=== PATIENT | female | born 1990 | race African-American/Black ===

== ENCOUNTER 2018-08-13 10:10 | Emergency (ER) | payer SELFPAY ==
[2018-08-13] MEDS ORDERED: LIDOCAINE 1% INJ-PF (10 MG/ML) 30 ML SDV INJ ONE (11:15)
[2018-08-13] MEDS ORDERED: BUPIVACAINE HCL 0.5%-EPI 1:200000 INJ/PF 30 ML VIAL INJ ONE (11:15)
[2018-08-13] MEDS ORDERED: PENICILLIN V POTASSIUM 500 MG TABLET PO ONE (11:16)
--- NOTE | 2018-08-13 11:18 | ER Document Report ---
ED Oral Problem - General Chief Complaint: Toothache Stated Complaint: TOOTH PAIN Time Seen by Provider: 08/13/18 10:47 Primary Care Provider: [facility] [Provider Group] - Follow up as needed [facility] [Provider Group] - Follow up as needed Mode of Arrival: Ambulatory Information source: Patient Notes: 28-year-old female presents to ED for complaint of dental pain for tooth #18. She does have a open exposed nerve to the tooth. There is mild redness and erythema around the tooth. There is no obvious abscess at this time. She is alert oriented respirations regular and unlabored speaking in full sentences. She does have a history of high blood pressure but does not take any medications as she states she has no insurance blood pressure is 176/100. She also has Graves' disease and does not take her thyroid medicine and diabetes and does not take her metformin. He says she has not been to a doctor in a couple years due to not having any insurance. I have written a discharge referral for follow-up to see if they can help her to arrange medical care. TRAVEL OUTSIDE OF THE [place] IN LAST 30 DAYS: No - HPI Patient complains to provider of: Jaw pain, Toothache Onset: Other - month worse today Onset: Gradual Quality of pain: Sharp, Throbbing Severity: Severe Pain Level: 4 Associated symptoms: Toothache Worsened by: Cold Relieved by: Nothing Similar symptoms previously: Yes Recently seen / treated by doctor/dentist: No - Related Data Allergies/Adverse Reactions: No Known Allergies Allergy (Verified 08/13/18 10:12) Past Medical History - General Information source: Patient - Social History Smoking Status: Never Smoker Cigarette use (# per day): No Chew tobacco use (# tins/day): No Smoking Education Provided: No Frequency of alcohol use: Occasional Drug Abuse: None Occupation: Lives with: Other - family she is for Family History: Reviewed & Not Pertinent, DM Patient has suicidal ideation: No Patient has homicidal ideation: No - Past Medical History Cardiac Medical History: Reports: Hx Hypertension Pulmonary Medical History: Reports: Hx Asthma Neurological Medical History: Reports: Hx Migraine Endocrine Medical History: Reports: Hx Diabetes Mellitus Type 2, Hx Graves' Disease, Hx Hypothyroidism Renal/ Medical History: Reports: None Malignancy Medical History: Reports: None GI Medical History: Reports: None Musculoskeletal Medical History: Reports None Skin Medical History: Reports None Psychiatric Medical History: Reports: None Traumatic Medical History: Reports: None Infectious Medical History: Reports: None Past Surgical History: Reports: Hx Cholecystectomy - Immunizations Immunizations up to date: No Hx Diphtheria, Pertussis, Tetanus Vaccination: No Review of Systems - Review of Systems Constitutional: No symptoms reported EENT: Mouth pain, Dental problem Cardiovascular: No symptoms reported Respiratory: No symptoms reported Gastrointestinal: No symptoms reported Genitourinary: No symptoms reported Female Genitourinary: No symptoms reported Musculoskeletal: No symptoms reported Skin: No symptoms reported Hematologic/Lymphatic: No symptoms reported Neurological/Psychological: No symptoms reported -: Yes All other systems reviewed and negative Physical Exam - Vital signs Vitals: Temp Pulse Resp BP Pulse Ox 99.0 F 109 H 20 176/100 H 98 08/13/18 10:19 08/13/18 10:19 08/13/18 10:19 08/13/18 10:08/13/18 10:19 Interpretation: Normal, Hypertensive - General General appearance: Appears well, Alert - HEENT Head: Normocephalic, Atraumatic Eyes: Normal Pupils: PERRL Ears: Normal External canal: Normal Tympanic membrane: Normal Sinus: Normal Nasal: Normal Mouth/Lips: Caries Teeth diagram: 1 - Cavity to the back of the tooth with mild redness surrounding the tooth part of the tooth missing Pharynx: Normal Neck: Anterior cervical chain - Respiratory Respiratory status: No respiratory distress Chest status: Nontender Breath sounds: Normal Chest palpation: Normal - Cardiovascular Rhythm: Regular Heart sounds: Normal auscultation Murmur: No - Abdominal Inspection: Normal Distension: No distension Bowel sounds: Normal Tenderness: Nontender Organomegaly: No organomegaly - Back Back: Normal, Nontender - Extremities General upper extremity: Normal inspection, Nontender, Normal color, Normal ROM, Normal temperature General lower extremity: Normal inspection, Nontender, Normal color, Normal ROM, Normal temperature, Normal weight bearing. No: Jorge's sign - Neurological Neuro grossly intact: Yes Cognition: Normal Orientation: AAOx4 [place] Coma Scale Eye Opening: Spontaneous [place] Coma Scale Verbal: Oriented [place] Coma Scale Motor: Obeys Commands Krystin Coma Scale Total: 15 Speech: Normal Motor strength normal: LUE, RUE, LLE, RLE Sensory: Normal - Psychological Associated symptoms: Normal affect, Normal mood - Skin Skin Temperature: Warm Skin Moisture: Dry Skin Color: Normal Course - Re-evaluation Re-evalutation: 08/13/18 13:44 Patient was given an alveolar block for her dental pain for the tooth #17. She stated the pain was completely relieved after the dental block. She was given a prescription for penicillin VK as well as a penicillin VK in the emergency room and she was discharged home with instructions to please follow-up with a dentist. She was also given instructions to follow-up concerning her blood pressure diabetes and Graves' disease. I also did a discharge planning referral as she does have multiple medical problems that do need continuous care. - Vital Signs Vital signs: Temp Pulse Resp BP Pulse Ox 98.6 F 89 16 159/92 H 100 08/13/18 12:17 08/13/18 12:17 08/13/18 12:17 08/13/18 12:17 08/13/18 12:17 Discharge - Discharge Clinical Impression: Pain due to dental caries Condition: Stable Disposition: HOME, SELF-CARE Instructions: Family Physicians / Practices Additional Instructions: TOOTHACHE: Your pain is due to dental decay. The tooth must be repaired in order for you to feel better. You will, therefore, be referred to a dentist. We do not have dentists on the staff at [facility]. Severe swelling or drainage around a tooth usually means a dental abscess. This also requires evaluation and treatment by the dentist, but antibiotics may be prescribed while awaiting dental treatment. You should be rechecked immediately if you develop major swelling of the face, increasing pain, a lump in the jaw or gums, headache, difficulty swallowing, or fever. PENICILLIN V K: You have been given a prescription for Penicillin VK. Your physician has determined that this is the best antibiotic for your condition. Pen VK can be taken with meals, however more of the antibiotic gets into the bloodstream if it's taken on an empty stomach. Penicillin usually has no side effects. However, allergy to penicillins is common. If you have had an allergic reaction to any drug of the penicillin family, you should never take any other penicillin. Notify your doctor at once if you develop hives, itching, swelling, faintness, or shortness of breath. You have had a dental block with Sensorcaine and lidocaine to your dental pain in your left lower molar. You have stated you have complete relief at this time with your pain. This relief will last between 6-8 hours. It is very advisable that you call a dentist as soon as possible to get this tooth treated because no treatment that I gave you in the emergency room is going to last forever you need the tooth treated. Please also go to the drugstore and get some of the dental paste that you fill the tooth and with to prevent the air from touching this tooth until you can follow-up with a dentist. FOLLOW-UP CARE: You have been referred for follow-up care to the dentists listed below. Call the dentists office for an appointment as you were instructed or within the next two days. If you experience worsening or a significant change in your symptoms, notify the physician immediately or return to the Emergency Department at any time for re-evaluation. [facility] [address] [place], [place] [facility] [address] [place] [address] [facility] [place] [address] [facility] [address] [facility] [address] [email or web address] [address] [place] [address] Monday- 8:00am to 5:00 pm Will see patients from other peoples hospital. Charges based on income and family size and accepts Medicare, Medicaid, and Insurances Will pull molars [facility] [id number] Hours of Operation 8:00 am - 4:30 pm weekdays The following dental offices accept Medicaid: [facility] Dr. [address] Dr. [place] [address]. [place] Dr. Chavez Mariusz Nagy, Danial, and Suzette oral surgery Dr. Davis ([place]) Dr. Mejia ([place]) [facility] Drs. Chong ([place]) Dr. Jarvis ([place]) [facility] Dr. Gutiérrez ([place]) Drs. Marin and ([place]) Medicaid Care Line Prescriptions: Penicillin V Potassium [Penicillin Vk 500 mg Tablet] 500 mg PO BID #20 tablet Forms: Elevated Blood Pressure Referrals: [facility] [Provider Group] - Follow up as needed [facility] [Provider Group] - Follow up as needed
[2018-08-13 12:19] VITALS: BP 159/92
== END 2018-08-13 12:19 | disposition home or self-care (01) ==
LOC: ER 10:10
DX: K02.9 Dental caries, unspecified (principal); K08.89 Other specified disorders of teeth and supporting structures
CPT/HCPCS: 99282; 64400; J3490 ×2

== ENCOUNTER 2019-02-02 06:27 | Emergency (ER) | payer SELFPAY ==
--- NOTE | 2019-02-02 08:18 | ER Document Report ---
Addendum entered and electronically signed by CLARENCE HERNANDEZ PA-C 02/02/19 10:04: Discharge - Discharge Clinical Impression: Pain, dental High blood pressure Qualifiers: Hypertension type: unspecified Qualified Code(s): I10 - Essential (primary) hypertension Condition: Good Disposition: HOME, SELF-CARE Instructions: Toothache ([facility]) Additional Instructions: Follow-up with PCP/dentist 1 to 2 days. Return for any worsening symptoms. tylenol for any pain. f/u with pcp in 1-2 days for a recheck of your blood pressure as it was elevated here today and you may need to be placed on bp meds. Prescriptions: Lidocaine HCl [Xylocaine 2% Viscous Soln 20 ml Udcup] 5 ml PO QID PRN #100 ml PRN Reason: For Breakthrough Pain Penicillin V Potassium [Penicillin Vk 500 mg Tablet] 500 mg PO QID 10 Days #40 tablet Referrals: EVAN PATTERSON MD [HONORARY] - Follow up as needed Addendum entered and electronically signed by CLARENCE HERNANDEZ PA-C 02/02/19 10:01: Provider Note Provider Note: pt had some return of her dental pain after getting the dental block i was informed of at dc and was requesting pain control, so pt was ordered one norco here for her pain with improvement of her sx. will also dc with lidocaine viscous swish and spit. Original Note: HPI - HPI Patient complains to provider of: dental pain Time Seen by Provider: 02/02/19 08:08 Onset/Duration: Gradual, Constant Quality of pain: Sharp Severity: Moderate Pain Level: 4 Context: This is a 28-year-old female pt with the listed pmh presenting with toothache. Patient states this has been ongoing for about 2 days. endorses hx of breaking this tooth accidentally a while back. Patient describes the pain in the mouth as a 8 out of 10, sharp, aching, is located in the left lower posterior of the mouth. Patient denies any difficulty swallowing. Patient denies any difficulty handling secretions. Patient states normal appetite and fluid intake. Patient denies any fever or chills. Patient denies any radiation of pain into the neck. Patient states that chewing, and hot and cold make the pain worse. Palpation makes pain worse and rest makes it better. Patient denies any difficulty breathing. Patient denies all complaints at this time. Patient is here for pain control. no recent abx or steroids. hx of diabetes but states her sugars have been running well. States she went to the dentist however her blood pressure was elevated and they would not pull the tooth secondary to this. This was back in July. She has no PCP secondary to no insurance and has not bothered to follow-up to get her blood pressure controlled to be able to take care of her tooth issue. no recent illness. denies . Associated Symptoms: denies: Drooling, Earache, Fever, Headache, Vomiting Exacerbated by: Food Relieved by: Remaining still Similar symptoms previously: Yes Recently seen / treated by doctor: Yes - REPRODUCTIVE Reproductive: DENIES: : Past Medical History - General Information source: Patient - Social History Smoking Status: Former Smoker Frequency of alcohol use: None Drug Abuse: None Family History: Reviewed & Not Pertinent, DM Patient has suicidal ideation: No Patient has homicidal ideation: No - Past Medical History Cardiac Medical History: Reports: Hx Hypertension Pulmonary Medical History: Reports: Hx Asthma Neurological Medical History: Reports: Hx Migraine Endocrine Medical History: Reports: Hx Diabetes Mellitus Type 2, Hx Graves' Disease, Hx Hypothyroidism Renal/ Medical History: Denies: Hx Peritoneal Dialysis Past Surgical History: Reports: Hx Cholecystectomy - Immunizations Immunizations up to date: No Hx Diphtheria, Pertussis, Tetanus Vaccination: No Vertical Provider Document - CONSTITUTIONAL Notes: GENERAL_APPEARANCE: well_nourished, alert, cooperative, no_acute_distress, mild_obvious_discomfort. pleasant, obese young black female, speaking in full sentences, nontoxic, in no sign of pain or resp distress, easily sitting up, no one is with her. VITALS:reviewed, see vital signs table. HEAD: normocephalic, atraumatic. no swelling or ttp EARS: normal TMs and canals bilat. no sign of mastoiditis. no drainage or bleeding. EYES: PERRL, EOMI, conjunctiva_clear. NOSE: no_nasal_discharge. MOUTH: no decreased moisture. there are multiple dental caries noted. Tooth # 18 is broken and is extremely carious. There is mild localized inflammation. There is mild buccal swelling. there is tenderness to palpation over the noted tooth of concern. Uvula is midline. There is no trismus. There is no TMJ ttp/clicking produced. no tenderness over the sternocleidomastoid muscles. There is no tenderness over the thyroid cartilage. There is no submandibular hardness. no sign of ludwigs or drainable dental abscess. THROAT: no_tonsilar_inflammation/exudate/hypertrophy, no_airway_obstruction. no ulcers/lesions/thrush. no tongue/lip/facial swelling. no drooling, tripoding, voice change or stridor NECK: supple, no_neck_tenderness, no lymphadenopathy. full rom and full strength. no meningeal signs. LUNGS: no_wheezing, ctab, (-)accessory muscle use, good air exchange bilateral. HEART: normal_rate, normal_rhythm, no_murmur, EXTREMITIES: strength 5/5 in all extremities, good pulses in all extremities, no swelling\tenderness in the extremities, no edema. full rom. normal gait. brisk cap refill. good hand cco. NEURO: motor and sensation intact to light touch, cranial nerves 2-12 intact, cerebellar fxn intact SKIN: warm, dry, good_color, no_rash. no grossly visible overlying skin changes or signs of trauma. MENTAL_STATUS: speech_clear, oriented_X_3 , normal_affect, responds_appropriately to questions. - INFECTION CONTROL TRAVEL OUTSIDE OF THE [place] IN LAST 30 DAYS: No Course - Re-evaluation Re-evalutation: 02/02/19 09:28 Pt here for dental pain. She has not followed up with a dentist secondary to financial reasons along with a PCP. i did give her a dental and PCP list. She had improvement of her pain here with a dental block as described in the note. will discharge her with penicillin VK. Tylenol for any pain. Her blood pressure was a little elevated here today. She denies any hypertension symptoms. Advised she needs to follow-up with a PCP for blood pressure recheck as she may need to be placed on bp medications. advised to f/u with pcp/dentist in 1-2 days. return for any worsening symptoms. vss. well appearing. satting well on ra. neurononfocal. pt understands and agrees to plan. take the medication as prescribed. On reexam, pt improved with tx listed. remained stable. nontoxic. well appearin g. pain controlled. tolerating po. requesting to go home. Documentation achieved through voice recording which my lead to some occasional accidental typographical errors. Extensive efforts have been made to proof read documentation to make sure these are the least as possible. 02/02/19 09:31 Category Date Time Status Bupivacaine HCl/Pf [Sensorcaine 0.5% Mpf Inj 30 ml Sdv] Med 02/02/19 08:36 Once 30 ml INJ NOW ONE Lidocaine HCl [Xylocaine 1% Inj (10 mg/1 ml) 10 ml Mdv] Med 02/02/19 08:36 Once 10 ml INJ NOW ONE Lidocaine HCl/Pf [Xylocaine 1% Inj-Pf (10 mg/ml) 30 ml Med 02/02/19 08:38 Discontinued Sdv] 30 ml .ROUTE .STK-MED ONE Penicillin V Potassium [Penicillin Vk 500 mg Tablet] Med 02/02/19 09:31 Once 500 mg PO NOW ONE 02/02/19 09:32 DENTAL BLOCK PROCEDURE: The benefits, risks and possible complications of the procedure were explained to the pt who clearly understood and gave verbal consent without reservation. Left inferior alveolar was anesthetized with 2mL of lidocaine 1% without epi and bupivacaine 0.5% without epi via a 27 gauge needle. Satisfactory anesthesia was achieved. Pt tolerated procedure well. No complications. - Vital Signs Vital signs: Temp Pulse Resp BP Pulse Ox 98 F 88 14 165/109 H 97 02/02/19 06:28 02/02/19 06:28 02/02/19 06:28 02/02/19 06:28 02/02/19 06:28 Discharge - Discharge Clinical Impression: Pain, dental, High blood pressure Condition: Good Disposition: HOME, SELF-CARE Instructions: Toothache ([facility]) Additional Instructions: Follow-up with PCP/dentist 1 to 2 days. Return for any worsening symptoms. tylenol for any pain. f/u with pcp in 1-2 days for a recheck of your blood pressure as it was elevated here today and you may need to be placed on bp meds. Prescriptions: Penicillin V Potassium [Penicillin Vk 500 mg Tablet] 500 mg PO QID 10 Days #40 tablet Referrals: EVAN PATTERSON MD [HONORARY] - Follow up as needed
[2019-02-02] MEDS ORDERED: BUPIVACAINE HCL 0.5 % INJ/PF 30 ML SDV INJ ONE (08:36)
[2019-02-02] MEDS ORDERED: LIDOCAINE 1% INJ (10 MG/ML) 10 ML MDV INJ ONE (08:36)
[2019-02-02] MEDS ORDERED: LIDOCAINE 1% INJ-PF (10 MG/ML) 30 ML SDV ONE (08:38)
[2019-02-02] MEDS ORDERED: PENICILLIN V POTASSIUM 500 MG TABLET PO ONE (09:31)
[2019-02-02] MEDS ORDERED: HYDROCODONE/ACETAMINOPHEN 5-325 MG TABLET PO ONE (10:00)
[2019-02-02 10:07] VITALS: BP 188/111
== END 2019-02-02 10:07 | disposition home or self-care (01) ==
LOC: ER 06:27
DX: K08.9 Disorder of teeth and supporting structures, unspecified (principal); I10 Essential (primary) hypertension; E11.9 Type 2 diabetes mellitus without complications; Z90.49 Acquired absence of other specified parts of digestive tract
CPT/HCPCS: 99282; 64400; J3490

== ENCOUNTER 2019-02-02 23:37 | Inpatient (IN) | payer SELFPAY ==
[2019-02-03] MEDS ORDERED: NORMAL SALINE 1000 ML 1,000 ML IV ONE (00:35)
[2019-02-03] MEDS ORDERED: MORPHINE SULFATE 10 MG/ML INJ IV ONE (00:56)
[2019-02-03] MEDS ORDERED: ONDANSETRON HCL INJ/PF 4 MG/2 ML SDV IV ONE (00:56)
[2019-02-03] MEDS ORDERED: CLINDAMYCIN 900 MG/D5W RTU 900 MG/50 ML RTUPB IV SCH ×2 (01:00→06:00)
--- NOTE | 2019-02-03 01:00 | ER Document Report ---
ED General - General Chief Complaint: Facial Swelling Stated Complaint: FACIAL SWELLING Time Seen by Provider: 02/03/19 00:28 Mode of Arrival: Ambulatory Information source: Patient Notes: 28-year-old female with Graves' disease presents with left-sided facial swelling that started this afternoon. Patient was seen in the emergency department earlier today and diagnosed with a dental abscess. She underwent a dental block and was started on antibiotics. She states that she has taken 2 doses of antibiotics today. She had no facial swelling until she awoke from sleep this afternoon. Patient also having pain with opening her mouth. She denies any difficulty swallowing, fever, chills. She does admit to one episode of nausea and vomiting after taking her antibiotics. Patient's initial tooth pain started 2 days prior to this visit. She states she fractured her tooth several months ago but has not been able to see a dentist due to financial reasons. TRAVEL OUTSIDE OF THE [place] IN LAST 30 DAYS: No - HPI Onset: Other Onset/Duration: Gradual, Persistent, Worse Quality of pain: Throbbing Severity: Moderate Pain Level: 2 Associated symptoms: Headache, Nausea, Vomiting. denies: Hoarseness, Hurts to breath, Shortness of breath, Sore throat Exacerbated by: Movement Relieved by: Remaining still Similar symptoms previously: No Recently seen / treated by doctor: Yes - Related Data Allergies/Adverse Reactions: No Known Allergies Allergy (Verified 02/02/19 23:47) Past Medical History - General Information source: Patient - Social History Smoking Status: Never Smoker Frequency of alcohol use: None Drug Abuse: None Lives with: Family Family History: Reviewed & Not Pertinent, DM Patient has suicidal ideation: No Patient has homicidal ideation: No - Past Medical History Cardiac Medical History: Reports: Hx Hypertension Pulmonary Medical History: Reports: Hx Asthma Neurological Medical History: Reports: Hx Migraine Endocrine Medical History: Reports: Hx Diabetes Mellitus Type 2, Hx Graves' Disease, Hx Hypothyroidism Renal/ Medical History: Denies: Hx Peritoneal Dialysis Past Surgical History: Reports: Hx Cholecystectomy - Immunizations Immunizations up to date: No Hx Diphtheria, Pertussis, Tetanus Vaccination: No Review of Systems - Review of Systems Notes: REVIEW OF SYSTEMS: CONSTITUTIONAL : Denies fever, chills, or sweats. Denies recent illness. Denies weight loss, recent hospitalizations. EENT: Denies visual changes, eye pain. Denies sore throat, oral lesions, difficulty swallowing. CARDIOVASCULAR: Denies chest pain. Denies palpitations. Denies lower extremity edema. RESPIRATORY: Denies cough. Denies shortness of breath, wheezing. GASTROINTESTINAL: Denies abdominal pain or distention. Denies diarrhea. Denies blood in vomitus, stools, or per rectum. Denies black, tarry stools. Denies constipation. GENITOURINARY: Denies difficulty urinating, painful urination, frequency, blood in urine, or vaginal discharge. MUSCULOSKELETAL: Denies back or neck pain or stiffness. Denies joint pain or swelling. SKIN: Denies rash, lesions or sores. HEMATOLOGIC : Denies easy bruising or bleeding. LYMPHATIC: Denies swollen glands. NEUROLOGICAL: Denies confusion or altered mental status. Denies loss of consciousness. Denies dizziness or lightheadedness. Denies headache. Denies weakness or paralysis. Denies problems difficulty with ambulation, slurred speech. Denies sensory loss, numbness, or tingling. Denies seizures. PSYCHIATRIC: Denies anxiety or stress. Denies depression, suicidal ideation, or homicidal ideation. Denies visual or auditory hallucinations. Physical Exam - Vital signs Vitals: Temp Pulse Resp BP Pulse Ox 99.5 F 109 H 20 176/105 H 97 02/03/19 00:08 02/03/19 00:08 02/03/19 00:08 02/03/19 00:08 02/03/19 00:08 - Notes Notes: PHYSICAL EXAMINATION: GENERAL: Well-appearing, well-nourished and in no acute distress. HEAD: Atraumatic, normocephalic. EYES: Pupils equal round and reactive to light, extraocular movements intact, conjunctiva are normal. ENT: Nares patent, oropharynx clear without exudates. Moist mucous membranes. Left sided mandibular swelling. Fluctuance, no erythema. No dental abscess appreciated. No sublingual edema. NECK: Normal range of motion, supple without lymphadenopathy LUNGS: Breath sounds clear to auscultation bilaterally and equal. No wheezes rales or rhonchi. HEART: Regular rate and rhythm without murmurs ABDOMEN: Soft, nontender, nondistended abdomen. No guarding, no rebound. No masses appreciated. Female : deferred Musculoskeletal: Normal range of motion, no pitting or edema. No cyanosis. NEUROLOGICAL: Cranial nerves grossly intact. Normal speech, normal gait. Normal sensory, motor exams PSYCH: Normal mood, normal affect. SKIN: Warm, Dry, normal turgor, no rashes or lesions noted. Course - Re-evaluation Re-evalutation: Laboratory 02/03/19 02/03/19 01:25 01:25 WBC 13.6 H RBC 4.24 Hgb 11.6 L Hct 34.8 L MCV 82 MCH 27.2 MCHC 33.2 RDW 16.4 H Plt Count 301 Seg Neutrophils % 69.8 Lymphocytes % 23.1 Monocytes % 6.4 Eosinophils % 0.2 Basophils % 0.5 Absolute Neutrophils 9.5 H Absolute Lymphocytes 3.1 Absolute Monocytes 0.9 Absolute Eosinophils 0.0 Absolute Basophils 0.1 Sodium 138.4 Potassium 3.8 Chloride 103 Carbon Dioxide 25 Anion Gap 10 BUN 10 Creatinine 0.85 Est GFR ( Amer) > 60 Est GFR (Non-Af Amer) > 60 Glucose 128 H Calcium 9.[address] 02/03/19 00:28 IMPRESSION: Left facial cellulitis with no discrete abscess TECHNICAL DOCUMENTATION: Quality ID # 436: Final reports with documentation of one or more dose reduction techniques (e.g., Automated exposure control, adjustment of the mA and/or kV according to patient size, use of iterative reconstruction technique) copyright 2011 [employer]- All Rights Reserved Temp Pulse Resp BP Pulse Ox 99.5 F 109 H 20 176/105 H 97 02/03/19 00:08 02/03/19 00:08 02/03/19 00:08 02/03/19 00:08 02/03/19 00:08 02/03/19 00:59 28-year-old female presents for the second time today with the dental pain and now facial swelling which was not present this morning. Vital signs reviewed and patient is afebrile but tachycardic and markedly hypertensive. She states that she was started on the blood pressure medication today for the first time and did take it. She also states that she did take 2 doses of her penicillin today but when she awoke from her nap had significant facial swelling that was not present on her exam this morning.. Patient is currently afebrile, normotensive. She does not appear toxic or dehydrated. She is in no acute distress. CT of the face with IV contrast will be obtained to assess for abscess. She has been given IV clindamycin, morphine and Zofran, metoprolol. 02/03/19 03:22 CT of the face was obtained and showed facial cellulitis without a discrete abscess. In the few hours the patient has been in the emergency department her swelling has significantly worsened. She is able to still open her mouth although it is very painful. Discussed admission versus a trial of outpatient antibiotics and patient is very concerned about going home. Patient will be admitted to Dr. Orozco. 02/03/19 04:45 02/03/19 04:47 - Vital Signs Vital signs: Temp Pulse Resp BP Pulse Ox 99.5 F 109 H 20 170/96 H 96 02/03/19 00:08 02/03/19 00:08 02/03/19 00:08 02/03/19 04:01 02/03/19 04:02 - Laboratory Result Diagrams: 02/03/19 01:25 02/03/19 01:25 Laboratory results interpreted by me: 02/03/19 02/03/19 01:25 01:25 WBC 13.6 H Hgb 11.6 L Hct 34.8 L RDW 16.4 H Absolute Neutrophils 9.5 H Glucose 128 H - Diagnostic Test Radiology reviewed: Image reviewed, Reports reviewed Discharge - Discharge Clinical Impression: Facial cellulitis, Facial swelling, Trismus, Pain, dental High blood pressure Qualifiers: Hypertension type: essential hypertension Qualified Code(s): I10 - Essential (primary) hypertension Condition: Good Disposition: ADMITTED INPATIENT Admitting Provider: Ernesto (Hospitalist) Unit Admitted: Medical Floor
[2019-02-03 01:40] LABS: ABSOLUTE BASOPHILS # (AUTO) 0.1 10^3/uL (0.0-0.2); ABSOLUTE LYMPHOCYTES (AUTO) 3.1 10^3/uL (0.5-4.7); ABSOLUTE MONOCYTES (AUTO) 0.9 10^3/uL (0.1-1.4); ABSOLUTE NEUT (AUTO) 9.5 10^3/uL (1.7-8.2); BASOPHILS % (AUTO) 0.5 % (0-2); EOSINOPHILS % (AUTO) 0.2 % (0-6); HEMATOCRIT 34.8 % (36.0-47.0); HEMOGLOBIN 11.6 g/dL (12.0-15.5); LYMPHOCYTES % (AUTO) 23.1 % (13-45); MEAN CORPUSCULAR HEMOGLOBIN 27.2 pg (27.0-33.4); MEAN CORPUSCULAR HGB CONC 33.2 g/dL (32.0-36.0); MEAN CORPUSCULAR VOLUME 82 fl (80-97); MONOCYTES % (AUTO) 6.4 % (3-13); PLATELET COUNT 301 10^3/uL (150-450); RED BLOOD COUNT 4.24 10^6/uL (3.72-5.28); RED CELL DISTRIBUTION WIDTH 16.4 % (11.5-14.0); SEGMENTED NEUTROPHILS % (AUTO) 69.8 % (42-78); TOTAL CELLS COUNTED % (AUTO) 100 %; WHITE BLOOD COUNT 13.6 10^3/uL (4.0-10.5)
[2019-02-03 01:56] LABS: ANION GAP 10 (5-19); BLOOD UREA NITROGEN 10 mg/dL (7-20); CALCIUM 9.2 mg/dL (8.4-10.2); CARBON DIOXIDE 25 mmol/L (22-30); CHLORIDE 103 mmol/L (98-107); GLUCOSE 128 mg/dL (75-110); POTASSIUM 3.8 mmol/L (3.6-5.0)
[2019-02-03] MEDS ORDERED: CLINDAMYCIN 900 MG/D5W RTU 900 MG/50 ML RTUPB IV ONE (02:22)
--- NOTE | 2019-02-03 02:58 | RADIOLOGY REPORT (SQ) ---
EXAM DESCRIPTION: CT MAXILLOFACIAL WITH IV CONTRAST COMPLETED DATE/TME: 02/03/2019 00:28 CLINICAL HISTORY: 28 years, Female, swelling COMPARISON: None. TECHNIQUE: 292 Images stored on PACS. All CT scanners at this facility use dose modulation, iterative reconstruction, and/or weight based dosing when appropriate to reduce radiation dose to as low as reasonably achievable (ALARA). [facility]: Dose Right [facility]: CareDose [facility]: Dose Right [facility]: Teradose 4D [facility]: [employer] LIMITATIONS: None. FINDINGS: Soft tissue swelling along the left face and superficial to the left mandible. No well-defined fluid collection or abscess. No bony destructive process. Minor mucosal thickening right maxillary sinus. Paranasal sinuses are otherwise well aerated. Globes are intact. IMPRESSION: Left facial cellulitis with no discrete abscess TECHNICAL DOCUMENTATION: Quality ID # 436: Final reports with documentation of one or more dose reduction techniques (e.g., Automated exposure control, adjustment of the mA and/or kV according to patient size, use of iterative reconstruction technique) copyright 2010 [employer]- All Rights Reserved
[2019-02-03] MEDS ORDERED: METOPROLOL TARTRATE 50 MG TABLET PO ONE (03:14)
[2019-02-03] MEDS ORDERED: MAGNESIUM HYDROXIDE SUSP 30 ML UDCUP PO PRN (03:40)
[2019-02-03] MEDS ORDERED: MAG HYDROX/AL HYDROX/SIMETH SUSP 30 ML UDCUP PO PRN (03:40)
[2019-02-03] MEDS ORDERED: NICOTINE 21 MG/24 HR PATCH.TD24 TD PRN (03:45)
[2019-02-03] MEDS ORDERED: NALBUPHINE HCL INJ 10 MG/1 ML AMPULE IV PRN (03:45)
[2019-02-03] MEDS ORDERED: LEVALBUTEROL HCL NEB 0.63 MG/3 ML AMPUL NEB PRN (03:55)
[2019-02-03] MEDS ORDERED: ALPRAZOLAM 0.25 MG TABLET PO PRN (03:55)
[2019-02-03] MEDS ORDERED: PENICILLIN G-K 5 MILLION UNIT VIAL IV SCH (04:00)
[2019-02-03 04:42] LABS: FREE T3 3.53 pg/mL (2.77-5.27); FREE T4 (FREE THYROXINE) 0.88 ng/dL (0.78-2.19)
[2019-02-03] MEDS ORDERED: HYDROMORPHONE HCL INJ/PF 2 MG/ML AMPULE IV ONE (04:48)
[2019-02-03 04:56] LABS: THYROID STIMULATING HORMONE 4.17 uIU/mL (0.47-4.68)
[2019-02-03] MEDS ORDERED: PENICILLIN G-K 5 MILLION UNIT VIAL ONE (05:59)
[2019-02-03] MEDS ORDERED: PENICILLIN G POTASSIUM 5,000,000 UNIT in DEXTROSE 5%-WATER 100 ML IV SCH ×4 (06:00→12:00)
[2019-02-03] MEDS: LEVOTHYROXINE SODIUM 0.05 MG TABLET PO SCH (06:02)
[2019-02-03] MEDS: HEPARIN SOD (PORCINE) 5,000 UNIT/ML 1 ML VIAL SUBCUT SCH ×3 (06:02→22:03)
--- NOTE | 2019-02-03 06:58 | PDOC H&P ---
History of Present Illness Admission Date/PCP: 02/03/19 03:43 No local PCP Patient complains of: Facial pain and swelling History of Present Illness: VINICIO ASCENCIO is a 28 year old female who presents with a 12-hour history of facial pain and swelling. The patient admits developing pain on the left lower side of her face in the early afternoon of 02/02/2019. She was seen in the emergency room and diagnosed with a dental abscess and was treated with a dental block and oral penicillin. This evening she woke to find increased left facial pain now accompanied by swelling despite taking 2 doses penicillin. She does admit that she initially started with a left-sided lower molar toothache 2 days ago that has progressed to the current state of facial pain and swelling. She describes the current pain is a moderate throbbing pain in the left side of her face worsened by opening her mouth or palpation in the area of pain. She admits the associated symptoms of generalized headache with nausea and vomiting. She denies prior similar episodes and has not identified any additional aggravating or ameliorating factors for her facial pain and swelling. In the emergency room patient was found to have moderate edema and tenderness of the left face and her WBC increased from 11,000-13,000. Because of her increased pain and increasing symptoms despite antibiotic therapy patient was admitted to the hospital for further evaluation and treatment. Past Medical History Cardiac Medical History: Reports: Hypertension Denies: Coronary Artery Disease Pulmonary Medical History: Reports: Asthma Denies: Chronic Obstructive Pulmonary Disease (COPD) EENT Medical History: Denies: Cataracts, Nose - Allergic rhinitis Neurological Medical History: Reports: Migraine Denies: Hemorrhagic CVA, Ischemic CVA, Multiple Sclerosis, Seizures Endocrine Medical History: Reports: Diabetes Mellitus Type 2, Hypothyroidism - Following Graves' disease, Obesity Denies: Diabetes Mellitus Type 1, Hyperthyroidism Renal/ Medical History: Denies: Chronic Kidney Disease, Nephrolithiasis Malignancy Medical History: Reports: None GI Medical History: Denies: Cirrhosis, Crohn's Disease, Hepatitis, Ulcerative Colitis Musculoskeltal Medical History: Denies: Arthritis, Fibromyalgia Skin Medical History: Denies: Eczema, Psoriasis Psychiatric Medical History: Denies: Alcohol Dependency, Substance Abuse, Tobacco Dependency Traumatic Medical History: Reports: None Hematology: Denies: Anemia, Bleeding Tendencies Infectious Medical History: Reports: None Past Surgical History Past Surgical History: Reports: Cholecystectomy Social History Information Source: Patient Lives with: Family Smoking Status: Never Smoker Frequency of Alcohol Use: None Hx Recreational Drug Use: No Drugs: None Hx Prescription Drug Abuse: No - Advance Directive Resuscitation Status: Full Code Surrogate healthcare decision maker:: Paige Santiago Family History Family History: CVA, DM, Hypertension, Malignancy, Thyroid Disfunction. denies: CAD Parental Family History Reviewed: Yes Children Family History Reviewed: No Sibling(s) Family History Reviewed.: Yes Medication/Allergy Home Medications: Albuterol Sulfate [Ventolin HFA MDI 18 GM] 2 puff IH Q4H 03/16/13 Alprazolam [Xanax 0.25 Mg Tablet] 0.25 mg PO TID PRN #12 tablet 03/16/13 Budesonide [Pulmicort 180 mcg Flexhaler] 1 puff IH DAILY 03/16/13 Ipratropium/Albuterol Sulfate [Combivent Inhaler] 14.7 gm IH 03/16/13 Levothyroxine Sodium [Synthroid 0.025 mg Tablet] 50 mcg PO 03/16/13 Metformin HCl [Glumetza] 1,000 mg PO TID 03/16/13 Promethazine HCl [Phenergan 25 mg Tablet] 25 mg PO Q6H PRN #15 tablet 03/16/13 Penicillin V Potassium [Penicillin Vk 500 mg Tablet] 500 mg PO BID #20 tablet 08/13/18 Lidocaine HCl [Xylocaine 2% Viscous Soln 20 ml Udcup] 5 ml PO QID PRN #100 ml 02/02/19 Penicillin V Potassium [Penicillin Vk 500 mg Tablet] 500 mg PO QID 10 Days #40 tablet 02/02/19 Clindamycin HCl 300 mg PO TID 7 Days #21 capsule 02/03/19 Allergies/Adverse Reactions: No Known Allergies Allergy (Verified 02/02/19 23:47) Review of Systems Constitutional: PRESENT: as per HPI, headache(s). ABSENT: chills, fever(s) Eyes: ABSENT: visual disturbances, other - Eye pain Ears: ABSENT: hearing changes, other - Ear pain Nose, Mouth, and Throat: PRESENT: as per HPI, mouth pain - Toothache left lower posterior molar. ABSENT: sore throat Cardiovascular: ABSENT: chest pain, palpitations Respiratory: ABSENT: cough, dyspnea Gastrointestinal: PRESENT: as per HPI, nausea, vomiting. ABSENT: abdominal pain, constipation, diarrhea Genitourinary: ABSENT: dysuria, hematuria Musculoskeletal: ABSENT: back pain, joint swelling, muscle weakness Integumentary: PRESENT: other - Swelling and tenderness left lower jaw. ABSENT: erythema, pruritus, rash Neurological: ABSENT: confusion, convulsions, focal weakness, memory loss, syncope Psychiatric: ABSENT: anxiety, depression Endocrine: ABSENT: cold intolerance, heat intolerance Hematologic/Lymphatic: ABSENT: easy bleeding, easy bruising Allergic/Immunologic: ABSENT: seasonal rhinorrhea Physical Exam Vital Signs: Temp Pulse Resp BP Pulse Ox 99.5 F 109 H 20 176/105 H 97 02/03/19 00:08 02/03/19 00:08 02/03/19 00:08 02/03/19 00:08 02/03/19 00:08 Intake & Output 02/01/19 02/02/19 02/03/19 23:59 23:59 23:59 Intake Total 1050 Balance 1050 Weight 154.4 kg General appearance: PRESENT: no acute distress, cooperative, morbidly obese Head exam: PRESENT: atraumatic, normocephalic Eye exam: PRESENT: conjunctiva pink. ABSENT: conjunctival injection, scleral icterus Ear exam: PRESENT: normal external ear exam. ABSENT: bleeding, drainage Mouth exam: PRESENT: dry mucosa, neck supple Teeth exam: PRESENT: dental tenderness - Left maxillary region, other - Associated left paranasal and malar facial erythema and edema Neck exam: PRESENT: thyromegaly - Bilateral goiter. ABSENT: JVD, tracheal deviation Respiratory exam: PRESENT: clear to auscultation oscar, symmetrical, unlabored Cardiovascular exam: PRESENT: RRR. ABSENT: clicks, gallop, rubs Pulses: PRESENT: normal radial pulses, normal dorsalis pedis pul GI/Abdominal exam: PRESENT: normal bowel sounds, soft Rectal exam: PRESENT: deferred Extremities exam: ABSENT: joint swelling, pedal edema Musculoskeletal exam: PRESENT: full ROM, normal inspection. ABSENT: tenderness Neurological exam: PRESENT: alert, oriented to person, oriented to place, oriented to time, oriented to situation, CN II-XII grossly intact. ABSENT: motor sensory deficit Psychiatric exam: PRESENT: appropriate affect, normal mood Skin exam: PRESENT: dry, intact, rash - Edema and tenderness of the left lower jaw., warm. ABSENT: jaundice, urticaria Results Laboratory Results: 02/03/19 01:25 02/03/19 01:25 02/03/19 02/03/19 01:25 01:25 WBC 13.6 H RBC 4.24 Hgb 11.6 L Hct 34.8 L MCV 82 MCH 27.2 MCHC 33.2 RDW 16.4 H Plt Count 301 Seg Neutrophils % 69.8 Lymphocytes % 23.1 Monocytes % 6.4 Eosinophils % 0.2 Basophils % 0.5 Absolute Neutrophils 9.5 H Absolute Lymphocytes 3.1 Absolute Monocytes 0.9 Absolute Eosinophils 0.0 Absolute Basophils 0.1 Sodium 138.4 Potassium 3.8 Chloride 103 Carbon Dioxide 25 Anion Gap 10 BUN 10 Creatinine 0.85 Est GFR ( Amer) > 60 Est GFR (Non-Af Amer) > 60 Glucose 128 H Calcium 9.2 Impressions: Facial Bones CT 02/03/19 00:28 IMPRESSION: Left facial cellulitis with no discrete abscess TECHNICAL DOCUMENTATION: Quality ID # 436: Final reports with documentation of one or more dose reduction techniques (e.g., Automated exposure control, adjustment of the mA and/or kV according to patient size, use of iterative reconstruction technique) copyright 2011 [employer]- All Rights Reserved Assessment and Plan - Diagnosis (1) Facial cellulitis Is this a current diagnosis for this admission?: Yes Plan: Patient will be treated with IV penicillin G 500,000 units every 6 hours. She will use morphine sulfate 3 to 7.5 mg IV every 2 hours on a as needed basis for pain using a sliding scale. Daily CBCs, metabolic profiles and magnesium levels will be followed. She will also receive IV fluid using lactated Ringer's at 167 mL/h. (2) Diabetes mellitus type 2 in obese Is this a current diagnosis for this admission?: Yes Plan: Patient will be continued on her usual diabetic therapy and a diabetic diet. Before meals and at bedtime Accu-Cheks will be obtained with sliding scale insulin being administered for hyperglycemia and a hypoglycemic protocol in place. Hemoglobin A1c will be checked to assess the efficacy of her current th erapy. (3) Hypothyroid Qualifiers: Hypothyroidism type: unspecified Qualified Code(s): E03.9 - Hypothyroidism, unspecified Is this a current diagnosis for this admission?: Yes Plan: Patient will be continued on her current thyroid replacement. A thyroid profile will be obtained to evaluate the efficacy of her current therapy. (4) Asthma Qualifiers: Asthma severity: moderate Asthma persistence: persistent Asthma complication type: unspecified Qualified Code(s): J45.40 - Moderate persistent asthma, uncomplicated Is this a current diagnosis for this admission?: Yes Plan: Patient will be treated with an appropriate formulary substitution for her usual asthma therapeutic regimen. She will be observed closely throughout her hospital stay for any respiratory difficulty or symptoms. (5) High blood pressure Qualifiers: Hypertension type: essential hypertension Qualified Code(s): I10 - Essential (primary) hypertension Is this a current diagnosis for this admission?: Yes Plan: Patient will be continued on her usual antihypertensive therapy. Her vital sig ns including her blood pressure will be checked frequently hospital course. (6) Morbid obesity Is this a current diagnosis for this admission?: Yes Plan: A nutritional consultation will be obtained to assist the patient and appropr iate dietary measures to deal with her diabetes as well as her obesity. - Time Time Spent with patient: 25-34 minutes Medications reviewed and adjusted accordingly: Yes Anticipated discharge: Home - Inpatient Certification Based on my medical assessment, after consideration of the patient's comorbidities, presenting symptoms, or acuity I expect that the services needed warrant INPATIENT care.: Yes I certify that my determination is in accordance with my understanding of Medicare's requirements for reasonable and necessary INPATIENT services [42 CFR 412.3e].: Yes Medical Necessity: Failure to Improve With Outpatient Therapy, Significant Comorbidiites Make Outpatient Treatment Too Risky, Need For IV Fluids, Need for IV Antibiotics, Risk of Complication if Not Cared For in Hospital
[2019-02-03] MEDS: IPRATROPIUM BROMIDE 0.02% NEB 0.5 MG/2.5 ML AMPUL NEB SCH ×2 (07:46→16:41)
[2019-02-03] MEDS: LEVALBUTEROL HCL NEB 1.25 MG/3 ML AMPUL NEB SCH ×2 (07:46→16:41)
[2019-02-03] MEDS ORDERED: BUDESONIDE NEB 0.5 MG/2 ML AMPUL NEB SCH (08:00)
[2019-02-03 08:31] LABS: CHOLESTEROL 171.05 mg/dL (0-200); TRIGLYCERIDES 107 mg/dL (<150)
[2019-02-03] MEDS: RINGERS SOLUTION,LACTATED 1,000 ML IV PRN ×3 (08:31→22:05)
[2019-02-03 08:42] LABS: DIRECT LDL 124 mg/dL (<100)
[2019-02-03] MEDS: METFORMIN HCL 500 MG TABLET PO SCH ×2 (09:04→16:53)
[2019-02-03] MEDS: ACETAMINOPHEN 325 MG TABLET PO PRN ×2 (09:05→22:03)
[2019-02-03] MEDS: ONDANSETRON HCL INJ/PF 4 MG/2 ML SDV IV PRN ×3 (09:05→22:10)
[2019-02-03] MEDS: PENICILLIN G POTASSIUM 5,000,000 UNIT in DEXTROSE 5%-WATER 100 ML IV SCH ×3 (09:06→22:04)
[2019-02-03] MEDS: DOCUSATE SODIUM 100 MG CAPSULE PO SCH ×2 (09:37→17:13)
[2019-02-03] MEDS: FAMOTIDINE 20 MG TABLET PO SCH ×2 (09:39→22:03)
--- NOTE | 2019-02-03 12:34 | Progress Note Acknowledgement ---
Progress Note Acknowledgement Progess Note Acknowledgement: I, the undersigned member of the medical staff with appropriate privileges and with supervisory authority over [ PAC], a dependent practice allied health professional, acknowledge that I have reviewed the progress notes entered on this patient, and in my professional judgment believe that the assessment made and/or any care evidenced was appropriate
--- NOTE | 2019-02-03 12:54 | PDOC PROGRESS REPORT ---
Subjective Progress Note for:: 02/03/19 Reason For Visit: DENTAL INFECTION WITH SECONDARY FACIAL Patient was admitted last night for facial swelling and dental pain. Patient states she has had trouble with that tooth where the soft tissue swelling is located for many years off and on. In fact she was supposed to get a port in July but when the dentist went to pull it her blood pressure was elevated so he aborted the procedure until she can get her blood pressure under control. She has never seen anyone for her blood pressure and takes no medicine for it, however she knows it is elevated Patient's dental pain is started in the last 2 to 3 days, soft tissue started just recently in the last day I was asked to see the patient today for controlled pain and hypertension Physical Exam Vital Signs: Temp Pulse Resp BP Pulse Ox 98.4 F 79 20 141/70 H 95 02/03/19 12:09 02/03/19 12:09 02/03/19 12:09 02/03/19 12:09 02/03/19 12:09 Intake & Output 02/02/19 02/03/19 02/04/19 06:59 06:59 06:59 Intake Total 1050 Balance 1050 Weight 154.4 kg 154.4 kg General appearance: PRESENT: mild distress Head exam: PRESENT: atraumatic, normocephalic Mouth exam: PRESENT: other - Acute soft tissue swelling to the left lower jaw Teeth exam: PRESENT: dental caries, other - Appears to be coming from tooth #21 or 22 Respiratory exam: PRESENT: clear to auscultation oscar. ABSENT: rales, rhonchi, wheezes Cardiovascular exam: PRESENT: RRR. ABSENT: diastolic murmur, rubs, systolic murmur Neurological exam: PRESENT: alert, awake, oriented to person, oriented to place, oriented to time, oriented to situation, CN II-XII grossly intact. ABSENT: motor sensory deficit Psychiatric exam: PRESENT: appropriate affect, normal mood. ABSENT: homicidal ideation, suicidal ideation Skin exam: PRESENT: other - Obese Results Laboratory Results: 02/03/19 01:25 02/03/19 01:25 02/03/19 02/03/19 02/03/19 01:25 01:25 01:25 WBC 13.6 H RBC 4.24 Hgb 11.6 L Hct 34.8 L MCV 82 MCH 27.2 MCHC 33.2 RDW 16.4 H Plt Count 301 Seg Neutrophils % 69.8 Lymphocytes % 23.1 Monocytes % 6.4 Eosinophils % 0.2 Basophils % 0.5 Absolute Neutrophils 9.5 H Absolute Lymphocytes 3.1 Absolute Monocytes 0.9 Absolute Eosinophils 0.0 Absolute Basophils 0.1 Sodium 138.4 Potassium 3.8 Chloride 103 Carbon Dioxide 25 Anion Gap 10 BUN 10 Creatinine 0.85 Est GFR ( Amer) > 60 Est GFR (Non-Af Amer) > 60 Glucose 128 H Calcium 9.2 Triglycerides Cholesterol LDL Cholesterol Direct VLDL Cholesterol HDL Cholesterol TSH 4.17 Free T4 0.88 Free T3 pg/mL 3.53 02/03/19 01:25 WBC RBC Hgb Hct MCV MCH MCHC RDW Plt Count Seg Neutrophils % Lymphocytes % Monocytes % Eosinophils % Basophils % Absolute Neutrophils Absolute Lymphocytes Absolute Monocytes Absolute Eosinophils Absolute Basophils Sodium Potassium Chloride Carbon Dioxide Anion Gap BUN Creatinine Est GFR ( Amer) Est GFR (Non-Af Amer) Glucose Calcium Triglycerides 107 Cholesterol 171.05 LDL Cholesterol Direct 124 H VLDL Cholesterol 21.0 HDL Cholesterol 41 TSH Free T4 Free T3 pg/mL Impressions: Facial Bones CT 02/03/19 00:28 IMPRESSION: Left facial cellulitis with no discrete abscess TECHNICAL DOCUMENTATION: Quality ID # 436: Final reports with documentation of one or more dose reduction techniques (e.g., Automated exposure control, adjustment of the mA and/or kV according to patient size, use of iterative reconstruction technique) copyright 2011 [employer]- All Rights Reserved Assessment and Plan - Diagnosis (1) Diabetes mellitus type 2 in obese Is this a current diagnosis for this admission?: Yes Plan: Patient will be continued on her usual diabetic therapy and a diabetic diet. Before meals and at bedtime Accu-Cheks will be obtained with sliding scale insulin being administered for hyperglycemia and a hypoglycemic protocol in place. Hemoglobin A1c will be checked to assess the efficacy of her current therapy. 02/03/2019 patient is currently taking metformin thousand milligrams twice daily globin A1c is only 6.3 fingerstick blood sugars 117, serum glucose 128 (2) Facial cellulitis Is this a current diagnosis for this admission?: Yes Plan: Patient will be treated with IV penicillin G 500,000 units every 6 hours. She will use morphine sulfate 3 to 7.5 mg IV every 2 hours on a as needed basis for pain using a sliding scale. Daily CBCs, metabolic profiles and magnesium levels will be followed. She will also receive IV fluid using lactated Ringer's at 167 mL/h. 02/03/2019 patient is on day #2 of penicillin G 5,000,000 units every 6 hours patient was given clindamycin in the ER CBC in the ER showed a white count of 13,600. Patient does not appear to be septic or toxic temperature 98.4 (3) High blood pressure Qualifiers: Hypertension type: essential hypertension Qualified Code(s): I10 - Essential (primary) hypertension Is this a current diagnosis for this admission?: Yes Plan: Patient will be continued on her usual antihypertensive therapy. Her vital signs including her blood pressure will be checked frequently hospital course. 02/03/2019 blood pressures this morning 141/70, 151/78 patient has been told in the past she is hypertensive, however she is asymptomatic (4) Morbid obesity Is this a current diagnosis for this admission?: Yes Plan: A nutritional consultation will be obtained to assist the patient and appropriate dietary measures to deal with her diabetes as well as her obesity. 02/03/2019 BMI 53, weight 158 kg (5) Pain, dental Is this a current diagnosis for this admission?: Yes Plan: 02/03/2019 patient has had dental pain in the past and was told she needs to have at least one tooth pulled. Patient has had an abscess in the past but never had the facial swelling - Time Time Spent with patient: 25-34 minutes - I was called to see the patient because of increased pain and hypertension
[2019-02-03] MEDS: LISINOPRIL 10 MG TABLET PO SCH ×2 (13:44→22:03)
[2019-02-03] MEDS: KETOROLAC TROMETHAMINE INJ/PF 30 MG/1 ML SDV IV PRN ×2 (13:44→22:02)
[2019-02-03] MEDS: MORPHINE SULFATE 10 MG/ML INJ IV PRN ×2 (13:57→20:59)
[2019-02-03] MEDS ORDERED: ALBUTEROL SULFATE HFA (90 MCG/PUFF) 200 PUFF/8.5 GM MDI IH PRN (17:23)
[2019-02-03 20:57] LABS: ABSOLUTE BASOPHILS # (AUTO) 0.1 10^3/uL (0.0-0.2); ABSOLUTE EOSINOPHILS # (AUTO) 0.1 10^3/uL (0.0-0.6); ABSOLUTE LYMPHOCYTES (AUTO) 2.9 10^3/uL (0.5-4.7); ABSOLUTE NEUT (AUTO) 7.7 10^3/uL (1.7-8.2); BASOPHILS % (AUTO) 1.1 % (0-2); EOSINOPHILS % (AUTO) 0.5 % (0-6); HEMATOCRIT 33.3 % (36.0-47.0); HEMOGLOBIN 10.8 g/dL (12.0-15.5); LYMPHOCYTES % (AUTO) 24.7 % (13-45); MEAN CORPUSCULAR HEMOGLOBIN 26.6 pg (27.0-33.4); MEAN CORPUSCULAR HGB CONC 32.3 g/dL (32.0-36.0); MEAN CORPUSCULAR VOLUME 82 fl (80-97); MONOCYTES % (AUTO) 8.3 % (3-13); PLATELET COUNT 277 10^3/uL (150-450); RED BLOOD COUNT 4.05 10^6/uL (3.72-5.28); RED CELL DISTRIBUTION WIDTH 16.3 % (11.5-14.0); SEGMENTED NEUTROPHILS % (AUTO) 65.4 % (42-78); TOTAL CELLS COUNTED % (AUTO) 100 %; WHITE BLOOD COUNT 11.8 10^3/uL (4.0-10.5)
[2019-02-03 21:26] LABS: ANION GAP 10 (5-19); BLOOD UREA NITROGEN 13 mg/dL (7-20); CALCIUM 8.9 mg/dL (8.4-10.2); CARBON DIOXIDE 25 mmol/L (22-30); CHLORIDE 105 mmol/L (98-107); GLUCOSE 115 mg/dL (75-110); POTASSIUM 4.1 mmol/L (3.6-5.0)
[2019-02-04] MEDS: PENICILLIN G POTASSIUM 5,000,000 UNIT in DEXTROSE 5%-WATER 100 ML IV SCH ×4 (04:29→20:00)
[2019-02-04] MEDS: RINGERS SOLUTION,LACTATED 1,000 ML IV PRN (04:29)
[2019-02-04 05:19] LABS: HEMATOCRIT 30.5 % (36.0-47.0); MEAN CORPUSCULAR HGB CONC 32.8 g/dL (32.0-36.0); MEAN CORPUSCULAR VOLUME 82 fl (80-97); PLATELET COUNT 248 10^3/uL (150-450); RED CELL DISTRIBUTION WIDTH 16.4 % (11.5-14.0); WHITE BLOOD COUNT 9.8 10^3/uL (4.0-10.5)
[2019-02-04 05:34] LABS: ANION GAP 8 (5-19); BLOOD UREA NITROGEN 14 mg/dL (7-20); CALCIUM 8.5 mg/dL (8.4-10.2); CARBON DIOXIDE 25 mmol/L (22-30); CHLORIDE 106 mmol/L (98-107); GLUCOSE 108 mg/dL (75-110); POTASSIUM 4.1 mmol/L (3.6-5.0)
[2019-02-04] MEDS: HEPARIN SOD (PORCINE) 5,000 UNIT/ML 1 ML VIAL SUBCUT SCH ×3 (05:34→21:12)
[2019-02-04] MEDS: LEVOTHYROXINE SODIUM 0.05 MG TABLET PO SCH (05:34)
[2019-02-04] MEDS: METFORMIN HCL 500 MG TABLET PO SCH ×2 (08:00→16:21)
[2019-02-04] MEDS: KETOROLAC TROMETHAMINE INJ/PF 30 MG/1 ML SDV IV PRN ×2 (08:00→21:12)
[2019-02-04] MEDS: ONDANSETRON HCL INJ/PF 4 MG/2 ML SDV IV PRN ×3 (08:04→19:55)
[2019-02-04] MEDS: LISINOPRIL 10 MG TABLET PO SCH ×2 (09:11→21:11)
[2019-02-04] MEDS: DOCUSATE SODIUM 100 MG CAPSULE PO SCH ×2 (09:12→17:53)
[2019-02-04] MEDS ORDERED: VANCOMYCIN HCL 0 MG in DEXTROSE 5%-WATER 250 ML IV NR (09:15)
[2019-02-04] MEDS: FAMOTIDINE 20 MG TABLET PO SCH ×2 (09:17→21:11)
--- NOTE | 2019-02-04 09:32 | Progress Note Acknowledgement ---
Progress Note Acknowledgement Progess Note Acknowledgement: I, the undersigned member of the medical staff with appropriate privileges and with supervisory authority over [Aman Foy], a dependent practice allied health professional, acknowledge that I have reviewed the progress notes entered on this patient, and in my professional judgment believe that the assessment made and/or any care evidenced was appropriate
--- NOTE | 2019-02-04 09:32 | PDOC PROGRESS REPORT ---
Subjective Progress Note for:: 02/04/19 Subjective:: February 04, 2019-continue pain and swelling in the left jaw Reason For Visit: DENTAL INFECTION WITH SECONDARY FACIAL Physical Exam Vital Signs: Temp Pulse Resp BP Pulse Ox 99.0 F 86 18 153/88 H 94 02/04/19 07:00 02/04/19 07:00 02/04/19 07:00 02/04/19 07:00 02/04/19 07:00 Intake & Output 02/03/19 02/04/19 02/05/19 06:59 06:59 06:59 Intake Total 1050 4319 Balance 1050 4319 Weight 154.4 kg 157.6 kg General appearance: PRESENT: no acute distress, well-developed, well-nourished Head exam: PRESENT: atraumatic, normocephalic Eye exam: PRESENT: conjunctiva pink, EOMI, PERRLA. ABSENT: scleral icterus Ear exam: PRESENT: normal external ear exam Mouth exam: PRESENT: moist, tongue midline Neck exam: ABSENT: carotid bruit, JVD, lymphadenopathy, thyromegaly Adult Head Front/Back Image: 1 - Swelling Respiratory exam: PRESENT: clear to auscultation oscar. ABSENT: rales, rhonchi, wheezes Cardiovascular exam: PRESENT: RRR. ABSENT: diastolic murmur, rubs, systolic murmur Pulses: PRESENT: normal dorsalis pedis pul Vascular exam: PRESENT: normal capillary refill GI/Abdominal exam: PRESENT: normal bowel sounds, soft. ABSENT: distended, guarding, mass, organolmegaly, rebound, tenderness Rectal exam: PRESENT: deferred Extremities exam: PRESENT: full ROM. ABSENT: calf tenderness, clubbing, pedal edema Neurological exam: PRESENT: alert, awake, oriented to person, oriented to place, oriented to time, oriented to situation, CN II-XII grossly intact. ABSENT: motor sensory deficit Psychiatric exam: PRESENT: appropriate affect, normal mood. ABSENT: homicidal ideation, suicidal ideation Skin exam: PRESENT: dry, intact, warm. ABSENT: cyanosis, rash Results Laboratory Results: 02/04/19 04:18 02/04/19 04:18 02/03/19 02/03/19 02/04/19 20:30 20:30 04:18 WBC 11.8 H 9.8 RBC 4.05 3.70 L Hgb 10.8 L 10.0 L Hct 33.3 L 30.5 L MCV 82 82 MCH 26.6 L 27.0 MCHC 32.3 32.8 RDW 16.3 H 16.4 H Plt Count 277 248 Seg Neutrophils % 65.4 Lymphocytes % 24.7 Monocytes % 8.3 Eosinophils % 0.5 Basophils % 1.1 Absolute Neutrophils 7.7 Absolute Lymphocytes 2.9 Absolute Monocytes 1.0 Absolute Eosinophils 0.1 Absolute Basophils 0.1 Sodium 140.2 Potassium 4.1 Chloride 105 Carbon Dioxide 25 Anion Gap 10 BUN 13 Creatinine 1.04 Est GFR ( Amer) > 60 Est GFR (Non-Af Amer) > 60 Glucose 115 H Calcium 8.9 Magnesium 02/04/19 04:18 WBC RBC Hgb Hct MCV MCH MCHC RDW Plt Count Seg Neutrophils % Lymphocytes % Monocytes % Eosinophils % Basophils % Absolute Neutrophils Absolute Lymphocytes Absolute Monocytes Absolute Eosinophils Absolute Basophils Sodium 139.2 Potassium 4.1 Chloride 106 Carbon Dioxide 25 Anion Gap 8 BUN 14 Creatinine 0.77 Est GFR ( Amer) > 60 Est GFR (Non-Af Amer) > 60 Glucose 108 Calcium 8.5 Magnesium 1.9 Impressions: Facial Bones CT 02/03/19 00:28 IMPRESSION: Left facial cellulitis with no discrete abscess TECHNICAL DOCUMENTATION: Quality ID # 436: Final reports with documentation of one or more dose reduction techniques (e.g., Automated exposure control, adjustment of the mA and/or kV according to patient size, use of iterative reconstruction technique) copyright 2010 [employer]- All Rights Reserved Assessment and Plan - Diagnosis (1) Facial cellulitis Is this a current diagnosis for this admission?: Yes Plan: Patient will be treated with IV penicillin G 500,000 units every 6 hours. She will use morphine sulfate 3 to 7.5 mg IV every 2 hours on a as needed basis for pain using a sliding scale. Daily CBCs, metabolic profiles and magnesium levels will be followed. She will also receive IV fluid using lactated Ringer's at 167 mL/h. 02/03/2019 patient is on day #2 of penicillin G 5,000,000 units every 6 hours patient was given clindamycin in the ER CBC in the ER showed a white count of 13,600. Patient does not appear to be septic or toxic temperature 98.4 February 04, 2019-patient remains with swelling of the left jaw has not got any better at this time. Patient continues on penicillin G IV I have added vancomycin until we see returns of cultures. (2) Diabetes mellitus type 2 in obese Is this a current diagnosis for this admission?: Yes Plan: Patient will be continued on her usual diabetic therapy and a diabetic diet. Before meals and at bedtime Accu-Cheks will be obtained with sliding scale insulin being administered for hyperglycemia and a hypoglycemic protocol in place. Hemoglobin A1c will be checked to assess the efficacy of her current therapy. 02/03/2019 patient is currently taking metformin thousand milligrams twice daily globin A1c is only 6.3 fingerstick blood sugars 117, serum glucose 128 February 04, 2019-stable continue to follow (3) High blood pressure Qualifiers: Hypertension type: essential hypertension Qualified Code(s): I10 - Essential (primary) hypertension Is this a current diagnosis for this admission?: Yes Plan: Patient will be continued on her usual antihypertensive therapy. Her vital signs including her blood pressure will be checked frequently hospital course. 02/03/2019 blood pressures this morning 141/70, 151/78 patient has been told in the past she is hypertensive, however she is asymptomatic February 04, 2019-remains slightly elevated. I placed patient on Norvasc 5 mg p.o. daily in addition to her lisinopril. (4) Pain, dental Is this a current diagnosis for this admission?: Yes Plan: 02/03/2019 patient has had dental pain in the past and was told she needs to have at least one tooth pulled. Patient has had an abscess in the past but never had the facial swelling February 04, 2019-patient continued to receive PRN morphine and Toradol. Nursing staff request something orally to last longer between doses. I gave patient Percocet 10 mg p.o. every 6 hours as needed - Time Time Spent with patient: 15-24 minutes - Inpatient Certification Based on my medical assessment, after consideration of the patient's comorbidities, presenting symptoms, or acuity I expect that the services needed warrant INPATIENT care.: Yes I certify that my determination is in accordance with my understanding of Medicare's requirements for reasonable and necessary INPATIENT services [42 CFR 412.3e].: Yes Medical Necessity: Other - IV antibiotic, pain control
[2019-02-04] MEDS ORDERED: MORPHINE SULFATE 10 MG/ML INJ IV PRN ×2 (10:17→10:18)
[2019-02-04] MEDS: AMLODIPINE BESYLATE 5 MG TABLET PO SCH (10:17)
[2019-02-04] MEDS: 1/2 NORMAL SALINE 1,000 ML IV PRN ×2 (12:19→21:23)
[2019-02-04] MEDS: OXYCODONE-ACETAMINOPHEN 5-325 MG TABLET PO PRN ×2 (13:50→21:11)
[2019-02-04] MEDS: VANCOMYCIN HCL 1,500 MG in DEXTROSE 5%-WATER 250 ML IV SCH ×2 (14:09→21:14)
[2019-02-04] MEDS: MORPHINE SULFATE 10 MG/ML INJ IV PRN ×2 (15:13→19:58)
[2019-02-04] MEDS: HYDRALAZINE HCL INJ/PF 20 MG/1 ML SDV IV PRN (19:51)
[2019-02-05] MEDS: ONDANSETRON HCL INJ/PF 4 MG/2 ML SDV IV PRN ×3 (04:08→15:18)
[2019-02-05] MEDS: PENICILLIN G POTASSIUM 5,000,000 UNIT in DEXTROSE 5%-WATER 100 ML IV SCH ×4 (04:08→21:31)
[2019-02-05 06:13] LABS: ABSOLUTE RETICS # 0.051 10^6/uL (0.028-0.122); HEMATOCRIT 30.5 % (36.0-47.0); HEMOGLOBIN 9.9 g/dL (12.0-15.5); MEAN CORPUSCULAR HEMOGLOBIN 27.1 pg (27.0-33.4); MEAN CORPUSCULAR HGB CONC 32.5 g/dL (32.0-36.0); MEAN CORPUSCULAR VOLUME 83 fl (80-97); PLATELET COUNT 266 10^3/uL (150-450); RED BLOOD COUNT 3.67 10^6/uL (3.72-5.28); RED CELL DISTRIBUTION WIDTH 16.6 % (11.5-14.0); WHITE BLOOD COUNT 9.5 10^3/uL (4.0-10.5)
[2019-02-05] MEDS: LEVOTHYROXINE SODIUM 0.05 MG TABLET PO SCH (06:27)
[2019-02-05] MEDS: VANCOMYCIN HCL 1,500 MG in DEXTROSE 5%-WATER 250 ML IV SCH ×3 (06:27→21:51)
[2019-02-05] MEDS: HEPARIN SOD (PORCINE) 5,000 UNIT/ML 1 ML VIAL SUBCUT SCH ×3 (06:27→21:30)
[2019-02-05 06:36] LABS: ANION GAP 9 (5-19); BLOOD UREA NITROGEN 9 mg/dL (7-20); CALCIUM 8.5 mg/dL (8.4-10.2); CARBON DIOXIDE 23 mmol/L (22-30); CHLORIDE 106 mmol/L (98-107); GLUCOSE 132 mg/dL (75-110); IRON(TIBC) 19.2 ug/dL (37-170)
[2019-02-05] MEDS: METFORMIN HCL 500 MG TABLET PO SCH ×2 (07:54→15:18)
[2019-02-05] MEDS: AMLODIPINE BESYLATE 5 MG TABLET PO SCH (09:27)
[2019-02-05] MEDS: LISINOPRIL 10 MG TABLET PO SCH ×2 (09:27→21:31)
[2019-02-05] MEDS: FAMOTIDINE 20 MG TABLET PO SCH ×2 (09:27→21:31)
[2019-02-05] MEDS: DOCUSATE SODIUM 100 MG CAPSULE PO SCH ×2 (09:28→17:04)
[2019-02-05] MEDS: KETOROLAC TROMETHAMINE INJ/PF 30 MG/1 ML SDV IV PRN ×2 (11:22→22:26)
[2019-02-05] MEDS: HYDRALAZINE HCL INJ/PF 20 MG/1 ML SDV IV PRN (12:10)
[2019-02-05] MEDS: ACETAMINOPHEN 325 MG TABLET PO PRN (12:51)
[2019-02-05] MEDS: 1/2 NORMAL SALINE 1,000 ML IV PRN ×2 (13:24→21:31)
[2019-02-05] MEDS ORDERED: HYDROCODONE/ACETAMINOPHEN 5-325 MG TABLET PO ONE (16:00)
--- NOTE | 2019-02-05 17:59 | PDOC PROGRESS REPORT ---
Subjective Progress Note for:: 02/05/19 Subjective:: This is a 28-year-old female with poor overall dentition was admitted for possible facial cellulitis. This started as dental pain which progressively resulted into left mandibular and left sided facial swelling. She was treated for possible dental abscess in the ER was given dental block and started on IV penicillin. Patient likely has periodontal abscess. No acute event overnight. Her left sided facial swelling has reportedly significantly improved today. She says the pain and swelling are much better today as well. No fever or chills. Reason For Visit: DENTAL INFECTION WITH SECONDARY FACIAL Physical Exam Vital Signs: Temp Pulse Resp BP Pulse Ox 99.4 F 105 H 20 150/73 H 99 02/05/19 15:00 02/05/19 15:00 02/05/19 15:00 02/05/19 15:00 02/05/19 15:00 Pulse Oximeter Nocturnal Start: 02/05/19 12:08 Freq: RTQ4 Status: Active Protocol: Document 02/05/19 16:28 [facility] (Rec: 02/05/19 16:29 [facility] [id number]) Nocturnal Pulse Oximetry Equipment Usage Equipment Standby Continuous SpO2 Machine # [id number] Other Equipment setup at bedside; however, patient is in shower at this time. Intake & Output 02/04/19 02/05/19 02/06/19 06:59 06:59 06:59 Intake Total 4319 4450 520 Output Total 950 900 Balance 4319 3500 -380 Weight 347 lb 7.176 oz 348 lb 8.813 oz General appearance: PRESENT: no acute distress, well-developed, well-nourished Head exam: PRESENT: atraumatic, normocephalic, other - Left mandibular swelling improved Eye exam: PRESENT: conjunctiva pink, EOMI, PERRLA. ABSENT: scleral icterus Ear exam: PRESENT: normal external ear exam Teeth exam: PRESENT: dental caries, poor dentation Neck exam: ABSENT: carotid bruit, JVD, lymphadenopathy, thyromegaly Respiratory exam: PRESENT: clear to auscultation oscar. ABSENT: rales, rhonchi, wheezes Cardiovascular exam: PRESENT: RRR. ABSENT: diastolic murmur, rubs, systolic murmur Pulses: PRESENT: normal dorsalis pedis pul GI/Abdominal exam: PRESENT: normal bowel sounds, soft. ABSENT: distended, guarding, mass, organolmegaly, rebound, tenderness Rectal exam: PRESENT: deferred Neurological exam: PRESENT: alert, awake, oriented to person, oriented to place, oriented to time, oriented to situation, CN II-XII grossly intact. ABSENT: motor sensory deficit Results Laboratory Results: 02/05/19 04:57 02/05/19 04:57 02/05/19 02/05/19 04:57 04:57 WBC 9.5 RBC 3.67 L Hgb 9.9 L Hct 30.5 L MCV 83 MCH 27.1 MCHC 32.5 RDW 16.6 H Plt Count 266 Retic Count (auto) 1.40 Absolute Retic 0.051 Sodium 137.8 Potassium 4.0 Chloride 106 Carbon Dioxide 23 Anion Gap 9 BUN 9 Creatinine 0.85 Est GFR ( Amer) > 60 Est GFR (Non-Af Amer) > 60 Glucose 132 H Calcium 8.5 Magnesium 1.7 Iron 19.2 L TIBC 335 % Saturation 6 Ferritin 42.60 Vitamin B12 440.0 Folate 17.50 Impressions: Facial Bones CT 02/03/19 00:28 IMPRESSION: Left facial cellulitis with no discrete abscess TECHNICAL DOCUMENTATION: Quality ID # 436: Final reports with documentation of one or more dose reduction techniques (e.g., Automated exposure control, adjustment of the mA and/or kV according to patient size, use of iterative reconstruction technique) copyright 2011 [employer]- All Rights Reserved Assessment and Plan - Diagnosis (1) Periodontal abscess Is this a current diagnosis for this admission?: Yes Plan: Improving. Currently on IV penicillin and vancomycin. Counseled patient that she we will definitely need to see a dentist after she gets discharged on antibiotics. (2) Facial swelling Is this a current diagnosis for this admission?: Yes Plan: Likely related to periodontal infection. - Time Time Spent with patient: 15-24 minutes
[2019-02-06 06:31] LABS: HEMATOCRIT 30.6 % (36.0-47.0); MEAN CORPUSCULAR HGB CONC 32.8 g/dL (32.0-36.0); MEAN CORPUSCULAR VOLUME 82 fl (80-97); PLATELET COUNT 303 10^3/uL (150-450); RED BLOOD COUNT 3.71 10^6/uL (3.72-5.28); RED CELL DISTRIBUTION WIDTH 16.4 % (11.5-14.0); WHITE BLOOD COUNT 8.7 10^3/uL (4.0-10.5)
[2019-02-06 06:52] LABS: VANCOMYCIN,TROUGH 18.8 ug/mL (5.0-20.0)
[2019-02-06 06:54] LABS: ANION GAP 10 (5-19); BLOOD UREA NITROGEN 7 mg/dL (7-20); CARBON DIOXIDE 23 mmol/L (22-30); CHLORIDE 107 mmol/L (98-107); GLUCOSE 108 mg/dL (75-110); POTASSIUM 4.2 mmol/L (3.6-5.0)
[2019-02-06] MEDS: PENICILLIN G POTASSIUM 5,000,000 UNIT in DEXTROSE 5%-WATER 100 ML IV SCH ×2 (07:12→09:40)
[2019-02-06] MEDS: HEPARIN SOD (PORCINE) 5,000 UNIT/ML 1 ML VIAL SUBCUT SCH (07:12)
[2019-02-06] MEDS: LEVOTHYROXINE SODIUM 0.05 MG TABLET PO SCH (07:12)
[2019-02-06] MEDS: METFORMIN HCL 500 MG TABLET PO SCH (07:13)
[2019-02-06] MEDS: VANCOMYCIN HCL 1,500 MG in DEXTROSE 5%-WATER 250 ML IV SCH (07:17)
[2019-02-06 08:27] VITALS: BP 150/91
[2019-02-06] MEDS: DOCUSATE SODIUM 100 MG CAPSULE PO SCH (09:41)
[2019-02-06] MEDS: FAMOTIDINE 20 MG TABLET PO SCH (09:41)
[2019-02-06] MEDS: AMLODIPINE BESYLATE 5 MG TABLET PO SCH (09:41)
[2019-02-06] MEDS: LISINOPRIL 10 MG TABLET PO SCH (09:41)
--- NOTE | 2019-02-07 15:47 | PDOC DISCHARGE SUMMARY ---
General - Admit/Disc Date/PCP Admission Date/Primary Care Provider: 02/03/19 03:43 Discharge Date: 02/06/19 - Discharge Diagnosis (1) Periodontal abscess Is this a current diagnosis for this admission?: Yes (2) Facial swelling Is this a current diagnosis for this admission?: Yes - Additional Information Resuscitation Status: Full Code Discharge Diet: As Tolerated Discharge Activity: Activity As Tolerated Prescriptions: Amlodipine Besylate [Norvasc 5 mg Tablet] 5 mg PO DAILY #30 tablet Amox Tr/Potassium Clavulanate [Augmentin 875-125 mg Tablet] 1 tab PO BID 5 Days #10 tablet Lisinopril [Prinivil] 20 mg PO DAILY #30 tablet Metformin HCl [Glucophage 500 mg Tablet] 1,000 mg PO BIDACBS #60 tablet Home Medications: Amlodipine Besylate [Norvasc 5 mg Tablet] 5 mg PO DAILY #30 tablet 02/06/19 Amox Tr/Potassium Clavulanate [Augmentin 875-125 mg Tablet] 1 tab PO BID 5 Days #10 tablet 02/06/19 Lisinopril [Prinivil] 20 mg PO DAILY #30 tablet 02/06/19 Metformin HCl [Glucophage 500 mg Tablet] 1,000 mg PO BIDACBS #60 tablet 02/06/19 History of Present Illness History of Present Illness: Admitting hospitalist's H&P: VINICIO ASCENCIO is a 28 year old female who presents with a 12-hour history of facial pain and swelling. The patient admits developing pain on the left l ower side of her face in the early afternoon of 02/02/2019. She was seen in the emergency room and diagnosed with a dental abscess and was treated with a dental block and oral penicillin. This evening she woke to find increased left facial pain now accompanied by swelling despite taking 2 doses penicillin. She does admit that she initially started with a left-sided lower molar toothache 2 days ago that has progressed to the current state of facial pain and swelling. She describes the current pain is a moderate throbbing pain in the left side of her face worsened by opening her mouth or palpation in the area of pain. She admits the associated symptoms of generalized headache with nausea and vomiting. She denies prior similar episodes and has not identified any additional aggravating or ameliorating factors for her facial pain and swelling. In the emergency room patient was found to have moderate edema and tenderness of the left face and her WBC increased from 11,000-13,000. Because of her increased pain and increasing symptoms despite antibiotic therapy patient was admitted to the hospital for further evaluation and treatment. Hospital Course Hospital Course: This is a 28-year-old female with poor overall dentition was admitted for p ossible facial cellulitis. This started as dental pain which progressively resulted into left mandibular and left sided facial swelling. She was treated for possible dental abscess in the ER was given dental block and started on IV penicillin. Patient likely has periodontal abscess. Her left sided facial swelling has reportedly significantly improved with IV antibiotics. Her pain and swelling also significantly improved. Counseled to follow through with her dental appointment. She will be discharged on Augmentin. Patient was also started on amlodipine and lisinopril for her elevated blood pressures. She does report she has history of hypertension but has not been taking any antihypertensive for several months now. She says that she was also on metformin before but again also stopped taking this because of insurance issues. She was given a prescription for metformin. She was also advised to follow-up with the [facility]. Physical Exam Vital Signs: Temp Pulse Resp BP Pulse Ox 99 F 94 20 150/91 H 100 02/06/19 09:43 02/06/19 09:43 02/06/19 09:43 02/06/19 09:43 02/06/19 09:43 Pulse Oximeter Nocturnal Start: 02/05/19 12:08 Freq: RTQ4 Status: Complete Protocol: Document 02/06/19 04:01 [facility] (Rec: 02/06/19 04:01 [facility] [id number]) Nocturnal Pulse Oximetry Equipment Usage Equipment in Use Nocturnal Spo2 Charge Charge Now Oxygen Delivery Method (includes room Room Air air) O2 Sat by Pulse Oximetry (92-100) 97 Continuous SpO2 Machine # 8 Intake & Output 02/06/19 02/07/19 02/08/19 06:59 06:59 06:59 Intake Total 2740 250 Output Total 3400 Balance -660 250 Weight 347 lb 7.176 oz General appearance: PRESENT: no acute distress, well-developed, well-nourished Head exam: PRESENT: atraumatic, normocephalic Eye exam: PRESENT: conjunctiva pink, EOMI, PERRLA. ABSENT: scleral icterus Ear exam: PRESENT: normal external ear exam Neck exam: ABSENT: carotid bruit, JVD, lymphadenopathy, thyromegaly Respiratory exam: PRESENT: clear to auscultation oscar. ABSENT: rales, rhonchi, wheezes Cardiovascular exam: PRESENT: RRR. ABSENT: diastolic murmur, rubs, systolic murmur Pulses: PRESENT: normal dorsalis pedis pul GI/Abdominal exam: PRESENT: normal bowel sounds, soft. ABSENT: distended, guar ding, mass, organolmegaly, rebound, tenderness Rectal exam: PRESENT: deferred Extremities exam: PRESENT: full ROM. ABSENT: calf tenderness, clubbing, pedal edema Neurological exam: PRESENT: alert, awake, oriented to person, oriented to place, oriented to time, oriented to situation, CN II-XII grossly intact. ABSENT: motor sensory deficit Results Laboratory Results: 02/06/19 05:55 02/06/19 05:55 Impressions: Facial Bones CT 02/03/19 00:28 IMPRESSION: Left facial cellulitis with no discrete abscess TECHNICAL DOCUMENTATION: Quality ID # 436: Final reports with documentation of one or more dose reduction techniques (e.g., Automated exposure control, adjustment of the mA and/or kV according to patient size, use of iterative reconstruction technique) copyright 2010 [employer]- All Rights Reserved Qualifiers - * PATIENT BEING DISCHARGED WITH ANY OF THE FOLLOWING DIAGNOSIS: No Acute Heart Failure - Is this a Heart Failure Patient?: No LVEF < 40%?: No- if no continue to question #3 3. Anticoagulant therapy for permanect/persistent/paraoxysmal Afib or Aflutter: N/A
== END 2019-02-06 10:16 | disposition home or self-care (01) | DRG 158 ==
LOC: ER 23:37 → EH 02-03 03:43 → 4S 02-03 08:49
PROVIDERS: ADMIT Emergency Medicine; ATTEND Emergency Medicine
DX: K05.219 Aggressive periodontitis, localized, unspecified severity (principal); L03.211 Cellulitis of face; I10 Essential (primary) hypertension; E11.9 Type 2 diabetes mellitus without complications; E05.00 Thyrotoxicosis with diffuse goiter without thyrotoxic crisis or storm; E66.01 Morbid (severe) obesity due to excess calories; J45.40 Moderate persistent asthma, uncomplicated; Z79.899 Other long term (current) drug therapy; Z59.9 Problem related to housing and economic circumstances, unspecified; Z82.3 Family history of stroke; Z83.3 Family history of diabetes mellitus; Z82.49 Family history of ischemic heart disease and other diseases of the circulatory system
CPT/HCPCS: 36415; 70487; 80048; 80061; 80202; 82607; 82728; 82746; 82962; 83036; 83540; 83550; 83735; 84439; 84443; 84481; 85025; 85027; 85045; 87040; 87493; 94640; 94762; 96361; 96374; 96375; 99284; J0360; J1170; J1644; J1885; J2270; J2405; J2540; J3370; J3490; J7030; J7060; J7120

== ENCOUNTER 2019-10-17 16:26 | Emergency (ER) | payer SELFPAY ==
[2019-10-17 16:39] VITALS: BP 145/95
[2019-10-17] MEDS ORDERED: FAMOTIDINE 20 MG TABLET PO ONE (16:59)
[2019-10-17] MEDS ORDERED: DIPHENHYDRAMINE HCL 50 MG CAPSULE PO ONE (16:59)
--- NOTE | 2019-10-17 17:02 | ER Document Report ---
ED Allergic Reaction - General Chief Complaint: Allergic Reaction Stated Complaint: SKIN FEELS LIKE TINGLING Time Seen by Provider: 10/17/19 16:45 Mode of Arrival: Ambulatory Information source: Patient Notes: 29-year-old female presents to ED for complaint of bug bite to the right arm. She states she then went numb and tingling all over her some trouble breathing for about 5 minutes. At this time she is having no trouble breathing she is alert oriented respirations regular nonlabored no wheezing. She states she does still have some swelling to the right arm. She states she was blotchy before. There is no signs of angioedema no swelling to the tongue no swelling to the lips no swelling to the throat. She is not having any trouble swallowing. She states she is not allergic to anything. She does have a history of Graves' disease pilonidal cyst removal high blood pressure anxiety depression and cholecystectomy. She states she has not had any Tylenol Motrin Benadryl or Pepcid since the incident. We will treat patient with Benadryl and Pepcid and discharge her home with instructions for Benadryl and Pepcid for her allergic reaction. She has been instructed to follow-up with primary care and get allergy testing. TRAVEL OUTSIDE OF THE [place] IN LAST 30 DAYS: No - HPI Onset: Just prior to arrival Onset/Duration: Better Quality of pain: Achy Severity: Mild Pain Level: 1 Identified cause: Possibly - Insect bite to the arm Skin rash / itching: "Redness" - Mild redness to the right arm Associated symptoms: None Similar symptoms previously: No Recently seen / treated by doctor: No - Related Data Allergies/Adverse Reactions: No Known Allergies Allergy (Verified 02/02/19 23:47) Past Medical History - General Information source: Patient - Social History Smoking Status: Never Smoker Frequency of alcohol use: None Drug Abuse: None Occupation: Lives with: Friend Family History: CVA, DM, Hypertension, Malignancy, Thyroid Disfunction. denies: CAD Patient has suicidal ideation: No Patient has homicidal ideation: No - Past Medical History Cardiac Medical History: Reports: Hx Hypertension Pulmonary Medical History: Reports: Hx Asthma EENT Medical History: Reports: None Neurological Medical History: Reports: Hx Migraine Endocrine Medical History: Reports: Hx Graves' Disease, Hx Hypothyroidism - Following Graves' disease Renal/ Medical History: Reports: None Malignancy Medical History: Reports: None GI Medical History: Reports: None Musculoskeletal Medical History: Reports None Skin Medical History: Reports None Psychiatric Medical History: Reports: Hx Anxiety, Hx Depression Traumatic Medical History: Reports: None Infectious Medical History: Reports: None Past Surgical History: Reports: Hx Cholecystectomy - Immunizations Immunizations up to date: No Hx Diphtheria, Pertussis, Tetanus Vaccination: No Review of Systems - Review of Systems Constitutional: No symptoms reported EENT: No symptoms reported Cardiovascular: No symptoms reported Respiratory: No symptoms reported, Other - Complained of shortness of breath and difficulty breathing for about 5 minutes after the bug bit her, no shortness of breath no difficulty breathing now Gastrointestinal: No symptoms reported Genitourinary: No symptoms reported Female Genitourinary: No symptoms reported Musculoskeletal: No symptoms reported Skin: Other - Redness and swelling to the right elbow. She states she was splotchy all over Hematologic/Lymphatic: No symptoms reported Neurological/Psychological: No symptoms reported Physical Exam - Vital signs Vitals: Temp Pulse Resp BP Pulse Ox 99.7 F 115 H 24 H 145/95 H 100 10/17/19 16:35 10/17/19 16:35 10/17/19 16:35 10/17/19 16:35 10/17/19 16:35 Interpretation: Normal - General General appearance: Appears well, Alert - HEENT Head: Normocephalic, Atraumatic Eyes: Normal Pupils: PERRL Ears: Normal External canal: Normal Tympanic membrane: Normal Sinus: Normal Nasal: Normal Mouth/Lips: Normal Mucous membranes: Normal Pharynx: Normal Neck: Normal - Respiratory Respiratory status: No respiratory distress Chest status: Nontender Breath sounds: Normal Chest palpation: Normal - Cardiovascular Rhythm: Regular Heart sounds: Normal auscultation Murmur: No - Abdominal Inspection: Normal Distension: No distension Bowel sounds: Normal Tenderness: Nontender Organomegaly: No organomegaly - Back Back: Normal, Nontender - Extremities General upper extremity: Normal inspection, Nontender, Normal color, Normal ROM, Normal temperature General lower extremity: Normal inspection, Nontender, Normal color, Normal ROM, Normal temperature, Normal weight bearing. No: Jorge's sign - Neurological Neuro grossly intact: Yes Cognition: Normal Orientation: AAOx4 Krystin Coma Scale Eye Opening: Spontaneous Krystin Coma Scale Verbal: Oriented Krystin Coma Scale Motor: Obeys Commands Krystin Coma Scale Total: 15 Speech: Normal Motor strength normal: LUE, RUE, LLE, RLE Sensory: Normal - Psychological Associated symptoms: Normal affect, Normal mood - Skin Skin Temperature: Warm Skin Moisture: Dry Skin Color: Normal Location of irregularity: Extremities - Multiple insect bite to the right lateral elbow Course - Vital Signs Vital signs: Temp Pulse Resp BP Pulse Ox 98.6 F 103 H 18 145/95 H 99 10/17/19 16:58 10/17/19 17:02 10/17/19 16:58 10/17/19 16:35 10/17/19 16:58 Discharge - Discharge Clinical Impression: Insect bite Qualifiers: Encounter type: initial encounter Site of insect bite: elbow Laterality: right Qualified Code(s): S50.361A - Insect bite (nonvenomous) of right elbow, initial encounter; W57.XXXA - Bitten or stung by nonvenomous insect and other nonvenomous arthropods, initial encounter Allergic reaction Qualifiers: Encounter type: initial encounter Qualified Code(s): T78.40XA - Allergy, unspecified, initial encounter Condition: Stable Disposition: HOME, SELF-CARE Additional Instructions: Insect Bites You have been bitten by an insect. These bites can cause two types of swelling: an initial swelling due to insect saliva or injected poison, and a late reaction due to your body's allergic reaction. This initial local reaction may be uncomfortable but is not dangerous. Often there's an itchy "hive" at the bite location. This is treated with antihistamines, cold compresses, and resting the affected body part. The later reaction often develops about the second day. The entire area becomes very swollen, red, itchy, and tender. This is an allergic reaction. Your body is attacking the leftover insect saliva or venom. This type of allergy is unpleasant, but not dangerous. We treat this swelling with cortisone-type medicine. Sometimes we use antibiotics if we're worried about infection. Antihistamines help with the itch. If you develop a fever, chills, a red streak, or swollen glands in the area of the bite, infection may be starting. Return at once. ACUTE ALLERGIC REACTION: Your symptoms are due to an allergic reaction. Allergy can cause hives, swelling of the hands, feet, and face, hoarseness, and difficulty swallowing or breathing. It may be due to exposure to medication, animal dander, foods, infection, or insect bites. Medication is a common cause, even when prior use of this same medication caused no problems. Acute treatment may include adrenalin and antihistamines. Usually, the specific allergic agent can't be identified unless repeated episodes occur. Home treatment includes the following: (1) Stop any suspicious medications. This will be discussed with you. (2) Oral antihistamines for the next four to five days. Example, diphenhydramine (Benadryl) every four hours. (3) You may also use cimetidine (Tagamet), ranitidine (Zantac), or famotidine (Pepcid) every four hours if diphenhydramine is not controlling itching and hives. (4) Avoid aspirin until the hives completely disappear. (5) Avoid hot baths or showers until the hives are completely gone. Call the doctor if faintness, difficulty swallowing, tightness in the chest, or wheezing occurs. ACID-SUPPRESSING MEDICATION: You have a prescription for medicine which reduces the stomach's secretion of acid. Examples include Zantac, Tagament, and Pepcid. These drugs are often used to allow healing of ulcers or esophagitis. They may be needed to prevent recurrence of ulcers in some patients, or to prevent damage from acid reflux in the esophagus. Take all medication as prescribed, even after the pain is gone. Regular antacids may be added as needed if you have symptoms while taking this medicine. These medications sometimes are prescribed for allergic reactions because they have anti-histaminic effects and relieve the rash and itching of the reaction. There are usually no side effects from this medication. But, in rare cases and particularly in the elderly, serious problems can occur. Contact your doctor if there is fever, rash, hallucinations, confusion, or unusual bruising. Contact your doctor at once if you develop lightheadedness, black or bloody stool, or bloody vomitus. ANTIHISTAMINES: An antihistamine has been given and/or prescribed to control your symptoms. Antihistamines are used for many reasons, including itching, watering eyes, runny nose, allergic swelling, hives, and insect stings. Antihistamines may cause drowsiness, especially with the first dose. Do not operate machinery or drive while under the effects of the medication. Other common side effects include dry mouth and eyes. In older persons, antihistamines can occasionally cause urinary retention, constipation, and trouble focusing the eyes. Do not combine the medication with alcohol, or with any other medication without talking to your doctor. USE OF DIPHENHYDRAMINE: The use of diphenhydramine (Benadryl) has been recommended to control allergic symptoms. The 25 mg strength is available over- the-counter, as well as the elixir. This antihistamine is used for many symptoms. It's useful for itching, watering eyes and nose, allergic swelling, hives, and insect stings. The medication can be repeated four times daily. Age Elixir (12.5 mg/tsp) 25 mg pill 2-3 yr 1/2 tsp 4-8 yr 1 tsp 9-14 yr 2 tsp one tab adult 1-2 tabs Antihistamines may cause drowsiness, especially with the first dose. Do not operate machinery or drive while under the effects of the medication. Do not combine the medication with alcohol, or with any other medication without talking to your doctor. FOLLOW-UP CARE: If you have been referred to a physician for follow-up care, call the physician s office for an appointment as you were instructed or within the next two days. If you experience worsening or a significant change in your symptoms, notify the physician immediately or return to the Emergency Department at any time for re-evaluation. Prescriptions: Diphenhydramine HCl [Benadryl 50 mg Capsule] 1 cap PO Q6HP PRN #14 capsule PRN Reason: Famotidine [Pepcid 20 mg Tablet] 20 mg PO BID #12 tablet Forms: Elevated Blood Pressure Referrals: [facility] [Provider Group] - Follow up as needed [facility] [Provider Group] - Follow up as needed [facility] [Provider Group] - Follow up as needed [facility] [Provider Group] - Follow up as needed
== END 2019-10-17 17:10 | disposition home or self-care (01) ==
LOC: ER 16:26
DX: S50.361A Insect bite (nonvenomous) of right elbow, initial encounter (principal); W57.XXXA Bitten or stung by nonvenomous insect and other nonvenomous arthropods, initial encounter; T78.40XA Allergy, unspecified, initial encounter; X58.XXXA Exposure to other specified factors, initial encounter; I10 Essential (primary) hypertension; J45.909 Unspecified asthma, uncomplicated
CPT/HCPCS: 99281